=== PATIENT | male | born 1980 | race African-American/Black ===

== ENCOUNTER 2016-09-04 11:51 | Emergency (ER) | payer OTHER ==
[2016-09-04] MEDS ORDERED: ONDANSETRON 4MG/2ML VIAL (J2405) As Ordered ONE (13:31)
[2016-09-04] MEDS ORDERED: KETOROLAC 30 MG/ML VIAL (J1885) As Ordered ONE (13:31)
--- NOTE | 2016-09-04 13:35 | REP ---
Clinical: Left flank pain. Comparison: 04/23/2015. Findings: Lung bases clear. Liver, spleen, pancreas, gallbladder, bilateral adrenal glands and left kidney are normal for noncontrast evaluation. Right kidney demonstrates multiple nonobstructing calculi measuring up to 5 mm. No perinephric stranding or hydroureteronephrosis appreciated bilaterally. The enteric system is without obstruction or obvious acute inflammatory process. Normal appendix identified in the right lower quadrant. Pelvis demonstrates normal bladder and age appropriate prostate/seminal vesicles. Calcifications in the pelvis are stable compared to 2014 and compatible with phleboliths. No ascites. No free air. Musculoskeletal structures intact. Impression: Nonobstructing right intrarenal calculi up to 5 mm. No acute intra-abdominal or pelvic pathology appreciated. Signed by Kayode Garcia MD 09/04/2016 01:27 P
[2016-09-04 13:55] LABS: BASO % 0.3 % (0.0-1.0); EOS # 0.1 K/mm3 (0.0-0.50); EOS % 2.3 % (0.0-3.0); LARGE UNSTAINED CELL % 0.9 % (0.0-4.0); LYMPH # 1.7 K/mm3 (1.5-4.5); LYMPH % 35.4 % (24.0-44.0); MEAN CORPUSCULAR HEMOGLOBIN 33.4 pg (27.0-33.0); MEAN CORPUSCULAR HGB CONC 34.9 g/dl (32.0-36.5); MEAN CORPUSCULAR VOLUME 95.4 fl (80.0-96.0); MONO # 0.3 K/mm3 (0.0-0.8); MONO % 6.3 % (0.0-5.0); NEUTROPHILS # 2.5 K/mm3 (1.8-7.7); NEUTROPHILS % 54.8 % (36.0-66.0); PLATELET COUNT, AUTOMATED 218 k/mm3 (150-450); RED CELL DISTRIBUTION WIDTH 12.9 % (11.5-14.5); WHITE BLOOD COUNT 4.6 K/mm3 (4.0-10.0)
[2016-09-04 14:11] LABS: ALBUMIN 4.3 GM/DL (3.2-5.2); ALBUMIN/GLOBULIN RATIO 1.19 (1.00-1.93); ALKALINE PHOSPHATASE 93 U/L (45-117); ALT/SGPT 33 U/L (12-78); AMYLASE 102 U/L (25-115); ANION GAP 6 MEQ/L (8-16); AST/SGOT 18 U/L (15-37); BILIRUBIN,DIRECT < 0.1 MG/DL (0.0-0.2); BILIRUBIN,TOTAL 0.4 MG/DL (0.2-1.0); BLOOD UREA NITROGEN 9 MG/DL (7-18); CALCIUM LEVEL 9.4 MG/DL (8.5-10.1); CARBON DIOXIDE LEVEL 31 MEQ/L (21-32); CHLORIDE LEVEL 103 MEQ/L (98-107); CREATININE FOR GFR 0.84 MG/DL (0.70-1.30); GLOMERULAR FILTRATION RATE > 60.0 (>60); GLUCOSE, FASTING 90 MG/DL (70-105); POTASSIUM SERUM 4.5 MEQ/L (3.5-5.1); SODIUM LEVEL 140 MEQ/L (136-145); TOTAL PROTEIN 7.9 GM/DL (6.4-8.2)
[2016-09-04] MEDS ORDERED: PERCOCET 5MG/325MG TAB As Ordered ONE (14:40)
[2016-09-04] MEDS ORDERED: TAMSULOSIN 0.4 MG CAP As Ordered ONE (14:41)
--- NOTE | 2016-09-04 14:49 | EDDOCDS ---
Physician Documentation [facility] Name: Ori Mesa Age: 35 yrs Sex: Male : 1980 Arrival Date: 09/04/2016 Time: 11:51 Bed I7 / 29 Private MD: Otto Darnell L. Disposition: 09/04/16 14:36 Discharged to Home/Self Care. Impression: Calculus of kidney - Right 5mm Intrarenal Calculus. - Condition is Stable. - Discharge Instructions: Kidney Stones, Ubat-by-Yxge. - Prescriptions for Flomax 0.4 mg Oral Capsule, Sust. Release 24 hr - take 1 capsule by ORAL route once daily 1/2 hour following the same meal each day; 30 capsule. Percocet 5- 325 mg Oral Tablet - take 1 tablet by ORAL route every 6 hours As needed MDD: 4 tabs; 20 tablet. ZOFRAN ODT 4 mg - dissolve 1 tablet by ORAL route 4 times per day As needed do not chew, do not swallow whole; 10 tablet. ketorolac 10 mg Oral Tablet - take 1 tablet by ORAL route 3 times per day As needed MDD- 30mg. Up to 5 days total use.; 15 tablet. - Referral List Call for Appointment, Medication Reconciliation, Local Pharmacy Hours form. - Follow up: Otto Darnell; When: 1 - 2 days; Reason: Further diagnostic work-up, Recheck today's complaints, Continuance of care. [facility] ; When: Call to arrange an appointment; Reason: Further diagnostic work-up, Recheck today's complaints, Continuance of care. Follow up: Emergency Department; Reason: Worsening of conditions. - Problem is new. - Symptoms have improved. Historical: - Allergies: no known allergies; - Home Meds: 1. none - PMHx: Kidney stones; - PSHx: Lithotripsy (2016); - Social history: Smoking status: Patient uses tobacco products, current every day smoker. No barriers to communication noted, The patient speaks fluent Macanese, Speaks appropriately for age. - Family history: No immediate family members are acutely ill. - : The pt / caregiver states he / she is not on anticoagulants. Home medication list is obtained from the patient. - Exposure Risk Screening:: None identified. Vital Signs: 09/04 11:54 BP 139 / 71; Pulse 94; Resp 16; Temp 96.9(T); Pulse Ox 98% on R/A; Weight 77.11 kg / lr2 170 lbs (R); Height 6 ft. 2 in. (187.96 cm) (R); Pain 7/10; 14:39 BP 116 / 67; Pulse 70; Resp 18; Temp 97.3(O); Pulse Ox 100% on R/A; Pain 0/10; nb2 11:54 Body Mass Index 21.83 (77.11 kg, 187.96 cm) lr2 MDM: 11:58 UA Ordered. EDMS 12:54 [facility] Payment Agreement was scanned into [employer] and attached to record. ks16 13:10 NS 0.9% 1000 ml IV at bolus once ordered. ef1 13:10 Ondansetron 4 mg IVP once ordered. ef1 13:10 ketorolac 30 mg IVP once ordered. ef1 13:10 IV Saline Lock ordered. ef1 13:10 Undress patient appropriately for examination ordered. ef1 13:10 Urine Culture Ordered. EDMS 13:11 Amylase Ordered. EDMS 13:11 Basic Metabolic Profile Ordered. EDMS 13:12 CBC with Diff Ordered. EDMS 13:12 Lipase Ordered. EDMS 13:12 Liver Profile Ordered. EDMS 13:12 CT ABD & PELVIS: No Contrast Ordered. EDMS 13:12 NOTHING BY MOUTH+DIET ordered. EDMS 13:13 Financial registration complete. ks16 14:28 Basic Metabolic Profile Reviewed. ef1 14:28 CBC with Diff Reviewed. ef1 14:28 UA Reviewed. ef1 14:28 Amylase Reviewed. ef1 14:28 Lipase Reviewed. ef1 14:28 Liver Profile Reviewed. ef1 14:28 CT ABD & PELVIS: No Contrast Reviewed. ef1 14:31 Tamsulosin Extended Release 24 hour Capsule 0.4 mg PO once ordered. ef1 14:36 oxyCODONE-acetaminophen 5 mg-325 mg 1 tabs PO once ordered. ef1 Administered Medications: 13:48 Drug: NS 0.9% 1000 ml [sodium chloride 0.9 % intravenous solution] Route: IV; Rate: mb9 bolus; Site: right antecubital; 14:46 Follow up: IV Status: Completed infusion; IV Intake: 1000ml dls 13:49 Drug: Ondansetron 4 mg [ondansetron HCl 2 mg/mL intravenous solution (2 mL)] Route: mb9 IVP; Site: right antecubital; 13:49 Drug: ketorolac 30 mg [ketorolac 30 mg/mL (1 mL) injection solution (1 mL)] Route: IVP; mb9 Site: right antecubital; 14:45 Drug: Tamsulosin 0.4 mg [tamsulosin 0.4 mg capsule (1 caps)] Route: PO; dls 14:46 Follow up: Response: No Adverse Reaction dls 14:45 Drug: oxyCODONE-acetaminophen 1 tabs [oxycodone-acetaminophen 5 mg-325 mg tablet (1 dls tabs)] Route: PO; 14:45 Follow up: Response: Pt left department before re-evaluation is appropriate dls Signatures: Dispatcher [employer] EDKallie Mosher RN RN dls María Palma RN RN kr3 April Alberts, PA-C PA-C ef1 Remy Barboza RN RN mb9 Patricia Webb, Reg Reg ks16 The chart was reviewed and I authenticate all verbal orders and agree with the evaluation and treatment provided.Attachments: 12:54 [facility] Payment Agreement ks16 MTDD
--- NOTE | 2016-09-04 14:49 | EDDOCDS ---
Nurse's Notes [facility] Name: Ori Mesa Age: 35 yrs Sex: Male : 1980 Arrival Date: 09/04/2016 Time: 11:51 Bed I7 / 29 Private MD: Otto Darnell L. Diagnosis: Calculus of kidney-Right 5mm Intrarenal Calculus Presentation: 09/04 11:54 Presenting complaint: Patient states: left side kidney pain for 1 day. reports has had kr3 kidney stones previously. Adult Sepsis Screening: The patient does not have new or worsening altered mentation. Patient's respiratory rate is less than 22. Systolic blood pressure is greater than 100. Patient has a qSOFA score of 0- Negative Sepsis Screen. Suicide/Homicide risk assessment- the patient denies having any suicidal and/or homicidal ideations and does not present with any other emotional, behavioral or mental health complaints. Status: Patient is not a director social service or dependent. Transition of care: patient was not received from another setting of care. 11:54 Acuity: ELIZABETH Level 3 kr3 11:54 Method Of Arrival: Walkin/Carried/Asstd kr3 Triage Assessment: 11:56 General: Appears in no apparent distress, Behavior is cooperative. Pain: Location: left kr3 flank Pain currently is 7 out of 10 on a pain scale. Pain: Aggravated by increased activity, repositioning. Pt Declines HIV testing. Neurological: No deficits noted. Respiratory: Respiratory effort is even, unlabored. : Denies burning with urination, urinary frequency, urgency. Derm: Skin is normal. Historical: - Allergies: no known allergies; - Home Meds: 1. none - PMHx: Kidney stones; - PSHx: Lithotripsy (2016); - Social history: Smoking status: Patient uses tobacco products, current every day smoker. No barriers to communication noted, The patient speaks fluent Stateless, Speaks appropriately for age. - Family history: No immediate family members are acutely ill. - : The pt / caregiver states he / she is not on anticoagulants. Home medication list is obtained from the patient. - Exposure Risk Screening:: None identified. Screenin:50 Screening information is obtained from the patient. Fall risk: No risks identified. mb9 Assistance ADL's: requires no assistance with activities of daily living. Abuse/DV Screen: The patient / caregiver reports he/she is: not in a situation that causes fear, pain or injury. Nutritional screening: No deficits noted. Advance Directives: There is no active DNR order. home support is adequate. Assessment: 13:50 General: Appears in no apparent distress, Behavior is appropriate for age, cooperative. mb9 Pain: Location: left flank Pain currently is 6 out of 10 on a pain scale. Respiratory: Airway is patent Respiratory effort is even, unlabored. Vital Signs: 11:54 BP 139 / 71; Pulse 94; Resp 16; Temp 96.9(T); Pulse Ox 98% on R/A; Weight 77.11 kg (R); lr2 Height 6 ft. 2 in. (187.96 cm) (R); Pain 7/10; 14:39 BP 116 / 67; Pulse 70; Resp 18; Temp 97.3(O); Pulse Ox 100% on R/A; Pain 0/10; nb2 11:54 Body Mass Index 21.83 (77.11 kg, 187.96 cm) lr2 Vitals: 11:54 Log In Time: September 04, 2016 at 11:51. lr2 ED Course: 11:53 Patient visited by Nay Mayer. lr2 11:53 Otto Darnell is Private Physician. lr2 11:53 Patient moved to Waiting lr2 11:53 Patient moved to Pre RCE lr2 11:55 Triage Initiated kr3 12:03 UA Sent. srm 12:15 Patient name changed from Ori\S\\S\Mesa\S\ to Ori\S\ \S\Mesa. EDMS 12:54 [facility] Payment Agreement was scanned into [employer] and attached to record. ks16 12:57 Patient moved to Triage 3 srm 12:58 [facility] ef1 12:58 Candy Ovalles MD is Attending Physician. ef1 13:08 Patient visited by April Alberts PA-C. ef1 13:11 Patient moved to I ct3 13:38 Patient visited by April Alberts PA-C. ef1 13:48 Amylase Sent. mb9 13:48 Basic Metabolic Profile Sent. mb9 13:48 CBC with Diff Sent. mb9 13:48 Lipase Sent. mb9 13:48 Liver Profile Sent. mb9 13:50 The patient / caregiver is instructed regarding the plan of care and ED course. mb9 13:50 Inserted saline lock: 18 gauge in right antecubital area and blood collected. The mb9 patient tolerated the procedure well. 14:09 CT ABD & PELVIS: No Contrast Returned. EDMS 14:20 Patient visited by April Alberts PA-C. ef1 14:36 Patient visited by April Alberts PA-C. ef1 14:36 Otto Darnell is Referral Physician. ef1 14:36 [facility] is Referral Physician. ef1 14:39 Patient visited by Callie Cano. nb2 14:47 Discontinued IV lock intact, bleeding controlled, pressure dressing applied, No dls redness/swelling at site. No procedures done that require assistance. Administered Medications: 13:48 Drug: NS 0.9% 1000 ml [sodium chloride 0.9 % intravenous solution] Route: IV; Rate: mb9 bolus; Site: right antecubital; 14:46 Follow up: IV Status: Completed infusion; IV Intake: 1000ml dls 13:49 Drug: Ondansetron 4 mg [ondansetron HCl 2 mg/mL intravenous solution (2 mL)] Route: mb9 IVP; Site: right antecubital; 13:49 Drug: ketorolac 30 mg [ketorolac 30 mg/mL (1 mL) injection solution (1 mL)] Route: IVP; mb9 Site: right antecubital; 14:45 Drug: Tamsulosin 0.4 mg [tamsulosin 0.4 mg capsule (1 caps)] Route: PO; dls 14:46 Follow up: Response: No Adverse Reaction dls 14:45 Drug: oxyCODONE-acetaminophen 1 tabs [oxycodone-acetaminophen 5 mg-325 mg tablet (1 dls tabs)] Route: PO; 14:45 Follow up: Response: Pt left department before re-evaluation is appropriate dls Intake: 14:46 IV: 1000.00ml; Total: 1000.00ml. dls Order Results: Lab Order: UA; SPEC'M 09/04/16 12:01 Test: APPEARANCE, URINE; Value: CLEAR; Range: CLEAR; Status: F Test: COLOR, URINE; Value: YELLOW; Range: YELLOW; Status: F Test: PH,URINE; Value: 7.0; Range: 5.0-9.0; Units: UNITS; Status: F Test: SPECIFIC GRAVITY URINE AUTO; Value: 1.010; Range: 1.002-1.035; Status: F Test: PROTEIN, URINE AUTO; Value: NEGATIVE; Range: NEGATIVE; Units: mg/dL; Status: F Test: GLUCOSE, URINE (UA) AUTO; Value: NEGATIVE; Range: NEGATIVE; Units: mg/dL; Status: F Test: KETONE, URINE AUTO; Value: NEGATIVE; Range: NEGATIVE; Units: mg/dL; Status: F Test: UROBILINOGEN, URINE AUTO; Value: 0.2; Range: 0.0-2.0; Units: mg/dL; Status: F Test: BILIRUBIN, URINE AUTO; Value: NEGATIVE; Range: NEGATIVE; Status: F Test: NITRITE, URINE AUTO; Value: NEGATIVE; Range: NEGATIVE; Status: F Test: LEUKOCYTE ESTERASE, URINE AUTO; Value: NEGATIVE; Range: NEGATIVE; Status: F Test: BLOOD, URINE BLOOD; Value: NEGATIVE; Range: NEGATIVE; Status: F Test: WBC, URINE AUTO; Value: 0; Range: 0-3; Units: /HPF; Status: F Test: RBC, URINE AUTO; Value: 0; Range: 0-3; Units: /HPF; Status: F Test: BACTERIA, URINE AUTO; Value: NEGATIVE; Range: NEGATIVE; Status: F Test: SQUAMOUS EPITHELIAL CELL UR AU; Value: 0; Range: 0-6; Units: /HPF; Status: F Test: MUCUS, URINE; Value: SMALL; Range: NEGATIVE; Status: F Test: HYALINE CAST, URINE AUTO; Value: 0; Range: 0-1; Units: /LPF; Status: F Lab Order: Amylase; SPEC' 09/04/16 13:45 Test: AMYLASE; Value: 102; Range: 25-115; Units: U/L; Status: F Lab Order: Basic Metabolic Profile; SPEC' 09/04/16 13:45 Test: GLUCOSE, FASTING; Value: 90; Range: 70-105; Units: MG/DL; Status: F Test: BLOOD UREA NITROGEN; Value: 9; Range: 7-18; Units: MG/DL; Status: F Test: CREATININE FOR GFR; Value: 0.84; Range: 0.70-1.30; Units: MG/DL; Status: F Test: GLOMERULAR FILTRATION RATE; Value: > 60.0; Range: >60; Status: F Test: SODIUM LEVEL; Value: 140; Range: 136-145; Units: MEQ/L; Status: F Test: POTASSIUM SERUM; Value: 4.5; Range: 3.5-5.1; Units: MEQ/L; Status: F Test: CHLORIDE LEVEL; Value: 103; Range: 98-107; Units: MEQ/L; Status: F Test: CARBON DIOXIDE LEVEL; Value: 31; Range: 21-32; Units: MEQ/L; Status: F Test: ANION GAP; Value: 6; Range: 8-16; Abnormal: Below low normal; Units: MEQ/L; Status: F Test: CALCIUM LEVEL; Value: 9.4; Range: 8.5-10.1; Units: MG/DL; Status: F Test Note: ; Units are mL/min/1.73 m2 Chronic Kidney Disease Staging per NKF: Stage I & II GFR >=60 Normal to Mildly Decreased Stage III GFR 30-59 Moderately Decreased Stage IV GFR 15-29 Severely Decreased Stage V GFR <15 Very Little GFR Left ESRD GFR <15 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 Order: CBC with Diff; SPEC'M 09/04/16 13:45 Test: WHITE BLOOD COUNT; Value: 4.6; Range: 4.0-10.0; Units: K/mm3; Status: F Test: RED BLOOD COUNT; Value: 4.73; Range: 4.30-6.10; Units: M/mm3; Status: F Test: HEMOGLOBIN; Value: 15.8; Range: 14.0-18.0; Units: g/dl; Status: F Test: HEMATOCRIT; Value: 45.1; Range: 42.0-52.0; Units: %; Status: F Test: MEAN CORPUSCULAR VOLUME; Value: 95.4; Range: 80.0-96.0; Units: fl; Status: F Test: MEAN CORPUSCULAR HEMOGLOBIN; Value: 33.4; Range: 27.0-33.0; Abnormal: Above high normal; Units: pg; Status: F Test: MEAN CORPUSCULAR HGB CONC; Value: 34.9; Range: 32.0-36.5; Units: g/dl; Status: F Test: RED CELL DISTRIBUTION WIDTH; Value: 12.9; Range: 11.5-14.5; Units: %; Status: F Test: PLATELET COUNT, AUTOMATED; Value: 218; Range: 150-450; Units: k/mm3; Status: F Test: NEUTROPHILS %; Value: 54.8; Range: 36.0-66.0; Units: %; Status: F Test: LYMPH %; Value: 35.4; Range: 24.0-44.0; Units: %; Status: F Test: MONO %; Value: 6.3; Range: 0.0-5.0; Abnormal: Above high normal; Units: %; Status: F Test: EOS %; Value: 2.3; Range: 0.0-3.0; Units: %; Status: F Test: BASO %; Value: 0.3; Range: 0.0-1.0; Units: %; Status: F Test: LARGE UNSTAINED CELL %; Value: 0.9; Range: 0.0-4.0; Units: %; Status: F Test: NEUTROPHILS #; Value: 2.5; Range: 1.8-7.7; Units: K/mm3; Status: F Test: LYMPH #; Value: 1.7; Range: 1.5-4.5; Units: K/mm3; Status: F Test: MONO #; Value: 0.3; Range: 0.0-0.8; Units: K/mm3; Status: F Test: EOS #; Value: 0.1; Range: 0.0-0.50; Units: K/mm3; Status: F Test: BASO #; Value: 0.0; Range: 0.0-0.2; Units: K/mm3; Status: F Test: LARGE UNSTAINED CELL #; Value: 0.0; Range: 0.0-0.4; Units: K/mm3; Status: F Lab Order: Lipase; SPEC'M 09/04/16 13:45 Test: LIPASE; Value: 170; Range: 73-393; Units: U/L; Status: F Lab Order: Liver Profile; SPEC'M 09/04/16 13:45 Test: AST/SGOT; Value: 18; Range: 15-37; Units: U/L; Status: F Test: ALT/SGPT; Value: 33; Range: 12-78; Units: U/L; Status: F Test: ALKALINE PHOSPHATASE; Value: 93; Range: 45-117; Units: U/L; Status: F Test: BILIRUBIN,TOTAL; Value: 0.4; Range: 0.2-1.0; Units: MG/DL; Status: F Test: BILIRUBIN,DIRECT; Value: < 0.1; Range: 0.0-0.2; Units: MG/DL; Status: F Test: TOTAL PROTEIN; Value: 7.9; Range: 6.4-8.2; Units: GM/DL; Status: F Test: ALBUMIN; Value: 4.3; Range: 3.2-5.2; Units: GM/DL; Status: F Test: ALBUMIN/GLOBULIN RATIO; Value: 1.19; Range: 1.00-1.93; Status: F Radiology Order: CT ABD & PELVIS: No Contrast Test: CT ABD & PELVIS: No Contrast REASON FOR EXAMINATION: Renal colic; Clinical: Left flank pain.; ; Comparison: 04/23/2015.; ; Findings:; Lung bases clear.; Liver, spleen, pancreas, gallbladder, bilateral adrenal glands and left kidney; are normal for noncontrast evaluation. Right kidney demonstrates multiple; nonobstructing calculi measuring up to 5 mm. No perinephric stranding or; hydroureteronephrosis appreciated bilaterally. The enteric system is without; obstruction or obvious acute inflammatory process. Normal appendix identified in; the right lower quadrant. Pelvis demonstrates normal bladder and age appropriate; prostate/seminal vesicles. Calcifications in the pelvis are stable compared to; 2014 and compatible with phleboliths. No ascites. No free air. Musculoskeletal; structures intact.; ; Impression:; Nonobstructing right intrarenal calculi up to 5 mm.; No acute intra-abdominal or pelvic pathology appreciated.; ; ; Signed by; Kayode Garcia MD 09/04/2016 01:27 P; Outcome: 14:36 Discharge ordered by Provider. ef1 14:47 Discharge Assessment: Patient awake, alert and oriented x 3. No cognitive and/or dls functional deficits noted. Patient verbalized understanding of disposition instructions. patient administered narcotics - no. The following High Risk Discharge criteria are identified: None. Condition: stable. Discharge instructions given to patient, Instructed on discharge instructions, follow up and referral plans. medication usage, Demonstrated understanding of instructions, medications, Pt was receptive of discharge instructions/ teaching. Prescriptions given X 4. CT Study completed. Property :Personal belongings accompany Pt. 14:48 Patient left the ED. dls Signatures: Dispatcher [employer] EDMS Dorothy Garcia, RN RN Kallie Rajan RN RN dls María Palma RN RN kr3 April Alberts, PA-C PA-C ef1 Sarah Gonzales, CHANNEL EXECUTIVE CHANNEL EXECUTIVE ct3 Remy BarbozaRN RN mb9 Patricia Webb, Reg Reg ks16 Callie Cano nb2 Nay Mayer lr2 MTDD
--- NOTE | 2016-09-06 15:49 | EDDOCDS ---
Physician Documentation [facility] Name: Ori Mesa Age: 35 yrs Sex: Male : 1980 Arrival Date: 09/04/2016 Time: 11:51 Bed I7 / 29 Private MD: Otto Darnell L. Disposition: 09/04/16 14:36 Discharged to Home/Self Care. Impression: Calculus of kidney - Right 5mm Intrarenal Calculus. - Condition is Stable. - Discharge Instructions: Kidney Stones, Jrwk-di-Ayap. - Prescriptions for Flomax 0.4 mg Oral Capsule, Sust. Release 24 hr - take 1 capsule by ORAL route once daily 1/2 hour following the same meal each day; 30 capsule. Percocet 5- 325 mg Oral Tablet - take 1 tablet by ORAL route every 6 hours As needed MDD: 4 tabs; 20 tablet. ZOFRAN ODT 4 mg - dissolve 1 tablet by ORAL route 4 times per day As needed do not chew, do not swallow whole; 10 tablet. ketorolac 10 mg Oral Tablet - take 1 tablet by ORAL route 3 times per day As needed MDD- 30mg. Up to 5 days total use.; 15 tablet. - Referral List Call for Appointment, Medication Reconciliation, Local Pharmacy Hours form. - Follow up: Otto Darnell; When: 1 - 2 days; Reason: Further diagnostic work-up, Recheck today's complaints, Continuance of care. [facility]: [facility] ; When: Call to arrange an appointment; Reason: Further diagnostic work-up, Recheck today's complaints, Continuance of care. Follow up: Emergency Department; Reason: Worsening of conditions. - Problem is new. - Symptoms have improved. Historical: - Allergies: no known allergies; - Home Meds: 1. none - PMHx: Kidney stones; - PSHx: Lithotripsy (2016); - Social history: Smoking status: Patient uses tobacco products, current every day smoker. No barriers to communication noted, The patient speaks fluent British, Speaks appropriately for age. - Family history: No immediate family members are acutely ill. - : The pt / caregiver states he / she is not on anticoagulants. Home medication list is obtained from the patient. - Exposure Risk Screening:: None identified. Vital Signs: 09/04 11:54 BP 139 / 71; Pulse 94; Resp 16; Temp 96.9(T); Pulse Ox 98% on R/A; Weight 77.11 kg / lr2 170 lbs (R); Height 6 ft. 2 in. (187.96 cm) (R); Pain 7/10; 14:39 BP 116 / 67; Pulse 70; Resp 18; Temp 97.3(O); Pulse Ox 100% on R/A; Pain 0/10; nb2 11:54 Body Mass Index 21.83 (77.11 kg, 187.96 cm) lr2 MDM: 11:58 UA Ordered. EDMS 12:54 [facility] Payment Agreement was scanned into [employer] and attached to record. ks16 13:10 NS 0.9% 1000 ml IV at bolus once ordered. ef1 13:10 Ondansetron 4 mg IVP once ordered. ef1 13:10 ketorolac 30 mg IVP once ordered. ef1 13:10 IV Saline Lock ordered. ef1 13:10 Undress patient appropriately for examination ordered. ef1 13:10 Urine Culture Ordered. EDMS 13:11 Amylase Ordered. EDMS 13:11 Basic Metabolic Profile Ordered. EDMS 13:12 CBC with Diff Ordered. EDMS 13:12 Lipase Ordered. EDMS 13:12 Liver Profile Ordered. EDMS 13:12 CT ABD & PELVIS: No Contrast Ordered. EDMS 13:12 NOTHING BY MOUTH+DIET ordered. EDMS 13:13 Financial registration complete. ks16 14:28 Basic Metabolic Profile Reviewed. ef1 14:28 CBC with Diff Reviewed. ef1 14:28 UA Reviewed. ef1 14:28 Amylase Reviewed. ef1 14:28 Lipase Reviewed. ef1 14:28 Liver Profile Reviewed. ef1 14:28 CT ABD & PELVIS: No Contrast Reviewed. ef1 14:31 Tamsulosin Extended Release 24 hour Capsule 0.4 mg PO once ordered. ef1 14:36 oxyCODONE-acetaminophen 5 mg-325 mg 1 tabs PO once ordered. ef1 18:03 T-Sheet-- Draft Copy was scanned into [employer] and attached to record. klr 09/06 11:06 Radiology Report was scanned into [employer] and attached to record. gb Administered Medications: 09/04 13:48 Drug: NS 0.9% 1000 ml [sodium chloride 0.9 % intravenous solution] Route: IV; Rate: mb9 bolus; Site: right antecubital; 14:46 Follow up: IV Status: Completed infusion; IV Intake: 1000ml dls 13:49 Drug: Ondansetron 4 mg [ondansetron HCl 2 mg/mL intravenous solution (2 mL)] Route: mb9 IVP; Site: right antecubital; 13:49 Drug: ketorolac 30 mg [ketorolac 30 mg/mL (1 mL) injection solution (1 mL)] Route: IVP; mb9 Site: right antecubital; 14:45 Drug: Tamsulosin 0.4 mg [tamsulosin 0.4 mg capsule (1 caps)] Route: PO; dls 14:46 Follow up: Response: No Adverse Reaction dls 14:45 Drug: oxyCODONE-acetaminophen 1 tabs [oxycodone-acetaminophen 5 mg-325 mg tablet (1 dls tabs)] Route: PO; 14:45 Follow up: Response: Pt left department before re-evaluation is appropriate dls Signatures: Dispatcher [employer] EDKallie Mosher RN RN dls Ludivina Bradford, Reg Reg gb María Palma RN RN kr3 April Alberts, PA-C PA-C ef1 Remy BarbozaRN RN mb9 Patricia Webb, Reg Reg ks16 Jessica Finnegan The chart was reviewed and I authenticate all verbal orders and agree with the evaluation and treatment provided.Attachments: 12:54 [facility] Payment Agreement ks16 18:03 T-Sheet-- Draft Copy klr Chart Complete MTDD
--- NOTE | 2016-09-06 15:49 | EDDOCDS ---
Nurse's Notes [facility] Name: Ori Mesa Age: 35 yrs Sex: Male : 1980 Arrival Date: 09/04/2016 Time: 11:51 Bed I7 / 29 Private MD: Otto Darnell L. Diagnosis: Calculus of kidney-Right 5mm Intrarenal Calculus Presentation: 09/04 11:54 Presenting complaint: Patient states: left side kidney pain for 1 day. reports has had kr3 kidney stones previously. Adult Sepsis Screening: The patient does not have new or worsening altered mentation. Patient's respiratory rate is less than 22. Systolic blood pressure is greater than 100. Patient has a qSOFA score of 0- Negative Sepsis Screen. Suicide/Homicide risk assessment- the patient denies having any suicidal and/or homicidal ideations and does not present with any other emotional, behavioral or mental health complaints. Status: Patient is not a student services coordinator or dependent. Transition of care: patient was not received from another setting of care. 11:54 Acuity: ELIZABETH Level 3 kr3 11:54 Method Of Arrival: Walkin/Carried/Asstd kr3 Triage Assessment: 11:56 General: Appears in no apparent distress, Behavior is cooperative. Pain: Location: left kr3 flank Pain currently is 7 out of 10 on a pain scale. Pain: Aggravated by increased activity, repositioning. Pt Declines HIV testing. Neurological: No deficits noted. Respiratory: Respiratory effort is even, unlabored. : Denies burning with urination, urinary frequency, urgency. Derm: Skin is normal. Historical: - Allergies: no known allergies; - Home Meds: 1. none - PMHx: Kidney stones; - PSHx: Lithotripsy (2016); - Social history: Smoking status: Patient uses tobacco products, current every day smoker. No barriers to communication noted, The patient speaks fluent South Korean, Speaks appropriately for age. - Family history: No immediate family members are acutely ill. - : The pt / caregiver states he / she is not on anticoagulants. Home medication list is obtained from the patient. - Exposure Risk Screening:: None identified. Screenin:50 Screening information is obtained from the patient. Fall risk: No risks identified. mb9 Assistance ADL's: requires no assistance with activities of daily living. Abuse/DV Screen: The patient / caregiver reports he/she is: not in a situation that causes fear, pain or injury. Nutritional screening: No deficits noted. Advance Directives: There is no active DNR order. home support is adequate. Assessment: 13:50 General: Appears in no apparent distress, Behavior is appropriate for age, cooperative. mb9 Pain: Location: left flank Pain currently is 6 out of 10 on a pain scale. Respiratory: Airway is patent Respiratory effort is even, unlabored. Vital Signs: 11:54 BP 139 / 71; Pulse 94; Resp 16; Temp 96.9(T); Pulse Ox 98% on R/A; Weight 77.11 kg (R); lr2 Height 6 ft. 2 in. (187.96 cm) (R); Pain 7/10; 14:39 BP 116 / 67; Pulse 70; Resp 18; Temp 97.3(O); Pulse Ox 100% on R/A; Pain 0/10; nb2 11:54 Body Mass Index 21.83 (77.11 kg, 187.96 cm) lr2 Vitals: 11:54 Log In Time: September 04, 2016 at 11:51. lr2 ED Course: 11:53 Patient visited by Nay Mayer. lr2 11:53 Otto Darnell is Private Physician. lr2 11:53 Patient moved to Waiting lr2 11:53 Patient moved to Pre RCE lr2 11:55 Triage Initiated kr3 12:03 UA Sent. srm 12:15 Patient name changed from Ori\S\\S\Mesa\S\ to Ori\S\ \S\Mesa. EDMS 12:54 [facility] Payment Agreement was scanned into [employer] and attached to record. ks16 12:57 Patient moved to Triage 3 srm 12:58 [facility] ef1 12:58 Candy Ovalles MD is Attending Physician. ef1 13:08 Patient visited by April Alberts PA-C. ef1 13:11 Patient moved to I ct3 13:38 Patient visited by April Alberts PA-C. ef1 13:48 Amylase Sent. mb9 13:48 Basic Metabolic Profile Sent. mb9 13:48 CBC with Diff Sent. mb9 13:48 Lipase Sent. mb9 13:48 Liver Profile Sent. mb9 13:50 The patient / caregiver is instructed regarding the plan of care and ED course. mb9 13:50 Inserted saline lock: 18 gauge in right antecubital area and blood collected. The mb9 patient tolerated the procedure well. 14:09 CT ABD & PELVIS: No Contrast Returned. EDMS 14:20 Patient visited by April Alberts PA-C. ef1 14:36 Patient visited by April Alberts PA-C. ef1 14:36 Otto Darnell is Referral Physician. ef1 14:36 [facility] is Referral Physician. ef1 14:39 Patient visited by Callie Cano. nb2 14:47 Discontinued IV lock intact, bleeding controlled, pressure dressing applied, No dls redness/swelling at site. No procedures done that require assistance. 18:03 T-Sheet-- Draft Copy was scanned into [employer] and attached to record. klr 02 11:06 Radiology Report was scanned into [employer] and attached to record. gb Administered Medications: 09/04 13:48 Drug: NS 0.9% 1000 ml [sodium chloride 0.9 % intravenous solution] Route: IV; Rate: mb9 bolus; Site: right antecubital; 14:46 Follow up: IV Status: Completed infusion; IV Intake: 1000ml dls 13:49 Drug: Ondansetron 4 mg [ondansetron HCl 2 mg/mL intravenous solution (2 mL)] Route: mb9 IVP; Site: right antecubital; 13:49 Drug: ketorolac 30 mg [ketorolac 30 mg/mL (1 mL) injection solution (1 mL)] Route: IVP; mb9 Site: right antecubital; 14:45 Drug: Tamsulosin 0.4 mg [tamsulosin 0.4 mg capsule (1 caps)] Route: PO; dls 14:46 Follow up: Response: No Adverse Reaction dls 14:45 Drug: oxyCODONE-acetaminophen 1 tabs [oxycodone-acetaminophen 5 mg-325 mg tablet (1 dls tabs)] Route: PO; 14:45 Follow up: Response: Pt left department before re-evaluation is appropriate dls Intake: 14:46 IV: 1000.00ml; Total: 1000.00ml. dls Order Results: Lab Order: UA; SPEC'M 09/04/16 12:01 Test: APPEARANCE, URINE; Value: CLEAR; Range: CLEAR; Status: F Test: COLOR, URINE; Value: YELLOW; Range: YELLOW; Status: F Test: PH,URINE; Value: 7.0; Range: 5.0-9.0; Units: UNITS; Status: F Test: SPECIFIC GRAVITY URINE AUTO; Value: 1.010; Range: 1.002-1.035; Status: F Test: PROTEIN, URINE AUTO; Value: NEGATIVE; Range: NEGATIVE; Units: mg/dL; Status: F Test: GLUCOSE, URINE (UA) AUTO; Value: NEGATIVE; Range: NEGATIVE; Units: mg/dL; Status: F Test: KETONE, URINE AUTO; Value: NEGATIVE; Range: NEGATIVE; Units: mg/dL; Status: F Test: UROBILINOGEN, URINE AUTO; Value: 0.2; Range: 0.0-2.0; Units: mg/dL; Status: F Test: BILIRUBIN, URINE AUTO; Value: NEGATIVE; Range: NEGATIVE; Status: F Test: NITRITE, URINE AUTO; Value: NEGATIVE; Range: NEGATIVE; Status: F Test: LEUKOCYTE ESTERASE, URINE AUTO; Value: NEGATIVE; Range: NEGATIVE; Status: F Test: BLOOD, URINE BLOOD; Value: NEGATIVE; Range: NEGATIVE; Status: F Test: WBC, URINE AUTO; Value: 0; Range: 0-3; Units: /HPF; Status: F Test: RBC, URINE AUTO; Value: 0; Range: 0-3; Units: /HPF; Status: F Test: BACTERIA, URINE AUTO; Value: NEGATIVE; Range: NEGATIVE; Status: F Test: SQUAMOUS EPITHELIAL CELL UR AU; Value: 0; Range: 0-6; Units: /HPF; Status: F Test: MUCUS, URINE; Value: SMALL; Range: NEGATIVE; Status: F Test: HYALINE CAST, URINE AUTO; Value: 0; Range: 0-1; Units: /LPF; Status: F Lab Order: Urine Culture; SPEC'M 09/04/16 12:00 Test: URINE CULTURE; Value: <EXTERNAL COMMENT eCWMed> FULL REPORT IN LAB NOTES (eCW and Medent).; Status: F Test: URINE CULTURE; Value: URINE CULTURE RESULT NO GROWTH; Status: F Lab Order: Amylase; SPEC'M 09/04/16 13:45 Test: AMYLASE; Value: 102; Range: 25-115; Units: U/L; Status: F Lab Order: Basic Metabolic Profile; SPEC'M 09/04/16 13:45 Test: GLUCOSE, FASTING; Value: 90; Range: 70-105; Units: MG/DL; Status: F Test: BLOOD UREA NITROGEN; Value: 9; Range: 7-18; Units: MG/DL; Status: F Test: CREATININE FOR GFR; Value: 0.84; Range: 0.70-1.30; Units: MG/DL; Status: F Test: GLOMERULAR FILTRATION RATE; Value: > 60.0; Range: >60; Status: F Test: SODIUM LEVEL; Value: 140; Range: 136-145; Units: MEQ/L; Status: F Test: POTASSIUM SERUM; Value: 4.5; Range: 3.5-5.1; Units: MEQ/L; Status: F Test: CHLORIDE LEVEL; Value: 103; Range: 98-107; Units: MEQ/L; Status: F Test: CARBON DIOXIDE LEVEL; Value: 31; Range: 21-32; Units: MEQ/L; Status: F Test: ANION GAP; Value: 6; Range: 8-16; Abnormal: Below low normal; Units: MEQ/L; Status: F Test: CALCIUM LEVEL; Value: 9.4; Range: 8.5-10.1; Units: MG/DL; Status: F Test Note: ; Units are mL/min/1.73 m2 Chronic Kidney Disease Staging per NKF: Stage I & II GFR >=60 Normal to Mildly Decreased Stage III GFR 30-59 Moderately Decreased Stage IV GFR 15-29 Severely Decreased Stage V GFR <15 Very Little GFR Left ESRD GFR <15 on ROUTE DELIVERY SUPERVISOR Lab Order: CBC with Diff; SPEC'M 09/04/16 13:45 Test: WHITE BLOOD COUNT; Value: 4.6; Range: 4.0-10.0; Units: K/mm3; Status: F Test: RED BLOOD COUNT; Value: 4.73; Range: 4.30-6.10; Units: M/mm3; Status: F Test: HEMOGLOBIN; Value: 15.8; Range: 14.0-18.0; Units: g/dl; Status: F Test: HEMATOCRIT; Value: 45.1; Range: 42.0-52.0; Units: %; Status: F Test: MEAN CORPUSCULAR VOLUME; Value: 95.4; Range: 80.0-96.0; Units: fl; Status: F Test: MEAN CORPUSCULAR HEMOGLOBIN; Value: 33.4; Range: 27.0-33.0; Abnormal: Above high normal; Units: pg; Status: F Test: MEAN CORPUSCULAR HGB CONC; Value: 34.9; Range: 32.0-36.5; Units: g/dl; Status: F Test: RED CELL DISTRIBUTION WIDTH; Value: 12.9; Range: 11.5-14.5; Units: %; Status: F Test: PLATELET COUNT, AUTOMATED; Value: 218; Range: 150-450; Units: k/mm3; Status: F Test: NEUTROPHILS %; Value: 54.8; Range: 36.0-66.0; Units: %; Status: F Test: LYMPH %; Value: 35.4; Range: 24.0-44.0; Units: %; Status: F Test: MONO %; Value: 6.3; Range: 0.0-5.0; Abnormal: Above high normal; Units: %; Status: F Test: EOS %; Value: 2.3; Range: 0.0-3.0; Units: %; Status: F Test: BASO %; Value: 0.3; Range: 0.0-1.0; Units: %; Status: F Test: LARGE UNSTAINED CELL %; Value: 0.9; Range: 0.0-4.0; Units: %; Status: F Test: NEUTROPHILS #; Value: 2.5; Range: 1.8-7.7; Units: K/mm3; Status: F Test: LYMPH #; Value: 1.7; Range: 1.5-4.5; Units: K/mm3; Status: F Test: MONO #; Value: 0.3; Range: 0.0-0.8; Units: K/mm3; Status: F Test: EOS #; Value: 0.1; Range: 0.0-0.50; Units: K/mm3; Status: F Test: BASO #; Value: 0.0; Range: 0.0-0.2; Units: K/mm3; Status: F Test: LARGE UNSTAINED CELL #; Value: 0.0; Range: 0.0-0.4; Units: K/mm3; Status: F Lab Order: Lipase; SPEC'M 09/04/16 13:45 Test: LIPASE; Value: 170; Range: 73-393; Units: U/L; Status: F Lab Order: Liver Profile; SPEC'M 09/04/16 13:45 Test: AST/SGOT; Value: 18; Range: 15-37; Units: U/L; Status: F Test: ALT/SGPT; Value: 33; Range: 12-78; Units: U/L; Status: F Test: ALKALINE PHOSPHATASE; Value: 93; Range: 45-117; Units: U/L; Status: F Test: BILIRUBIN,TOTAL; Value: 0.4; Range: 0.2-1.0; Units: MG/DL; Status: F Test: BILIRUBIN,DIRECT; Value: < 0.1; Range: 0.0-0.2; Units: MG/DL; Status: F Test: TOTAL PROTEIN; Value: 7.9; Range: 6.4-8.2; Units: GM/DL; Status: F Test: ALBUMIN; Value: 4.3; Range: 3.2-5.2; Units: GM/DL; Status: F Test: ALBUMIN/GLOBULIN RATIO; Value: 1.19; Range: 1.00-1.93; Status: F Radiology Order: CT ABD & PELVIS: No Contrast Test: CT ABD & PELVIS: No Contrast REASON FOR EXAMINATION: Renal colic; Clinical: Left flank pain.; ; Comparison: 04/23/2015.; ; Findings:; Lung bases clear.; Liver, spleen, pancreas, gallbladder, bilateral adrenal glands and left kidney; are normal for noncontrast evaluation. Right kidney demonstrates multiple; nonobstructing calculi measuring up to 5 mm. No perinephric stranding or; hydroureteronephrosis appreciated bilaterally. The enteric system is without; obstruction or obvious acute inflammatory process. Normal appendix identified in; the right lower quadrant. Pelvis demonstrates normal bladder and age appropriate; prostate/seminal vesicles. Calcifications in the pelvis are stable compared to; 2014 and compatible with phleboliths. No ascites. No free air. Musculoskeletal; structures intact.; ; Impression:; Nonobstructing right intrarenal calculi up to 5 mm.; No acute intra-abdominal or pelvic pathology appreciated.; ; ; Signed by; Kayode Garcia MD 09/04/2016 01:27 P; Outcome: 14:36 Discharge ordered by Provider. ef1 14:47 Discharge Assessment: Patient awake, alert and oriented x 3. No cognitive and/or dls functional deficits noted. Patient verbalized understanding of disposition instructions. patient administered narcotics - no. The following High Risk Discharge criteria are identified: None. Condition: stable. Discharge instructions given to patient, Instructed on discharge instructions, follow up and referral plans. medication usage, Demonstrated understanding of instructions, medications, Pt was receptive of discharge instructions/ teaching. Prescriptions given X 4. CT Study completed. Property :Personal belongings accompany Pt. 14:48 Patient left the ED. dls Signatures: Dispatcher [employer] EDMS Dorothy Garcia, RN RN Kallie Rajan RN RN Ludivina Sotomayor, Reg Reg gb María Palma RN RN kr3 April Alberts, PA-C PA-C ef1 Sarah Gonzales, LEAD MANUFACTURING ENGINEERING TECH LEAD MANUFACTURING ENGINEERING TECH ct3 Remy BarbozaRN RN mb9 Patricia Webb, Reg Reg ks16 Kain, Callie Pearson2 Nay Mayer2 Chart Complete MTDD
--- NOTE | 2016-09-06 15:49 | EDDOCDS ---
Physician Documentation [facility] Name: Ori Mesa Age: 35 yrs Sex: Male : 1980 Arrival Date: 09/04/2016 Time: 11:51 Bed I7 / 29 Private MD: Otto Darnell L. Disposition: 09/04/16 14:36 Discharged to Home/Self Care. Impression: Calculus of kidney - Right 5mm Intrarenal Calculus. - Condition is Stable. - Discharge Instructions: Kidney Stones, [id number]. - Prescriptions for Flomax 0.4 mg Oral Capsule, Sust. Release 24 hr - take 1 capsule by ORAL route once daily 1/2 hour following the same meal each day; 30 capsule. Percocet 5- 325 mg Oral Tablet - take 1 tablet by ORAL route every 6 hours As needed MDD: 4 tabs; 20 tablet. ZOFRAN ODT 4 mg - dissolve 1 tablet by ORAL route 4 times per day As needed do not chew, do not swallow whole; 10 tablet. ketorolac 10 mg Oral Tablet - take 1 tablet by ORAL route 3 times per day As needed MDD- 30mg. Up to 5 days total use.; 15 tablet. - Referral List Call for Appointment, Medication Reconciliation, Local Pharmacy Hours form. - Follow up: Otto Darnell; When: 1 - 2 days; Reason: Further diagnostic work-up, Recheck today's complaints, Continuance of care. [facility] ; When: Call to arrange an appointment; Reason: Further diagnostic work-up, Recheck today's complaints, Continuance of care. Follow up: Emergency Department; Reason: Worsening of conditions. - Problem is new. - Symptoms have improved. Historical: - Allergies: no known allergies; - Home Meds: 1. none - PMHx: Kidney stones; - PSHx: Lithotripsy (2016); - Social history: Smoking status: Patient uses tobacco products, current every day smoker. No barriers to communication noted, The patient speaks fluent [place], Speaks appropriately for age. - Family history: No immediate family members are acutely ill. - : The pt / caregiver states he / she is not on anticoagulants. Home medication list is obtained from the patient. - Exposure Risk Screening:: None identified. Vital Signs: 09/04 11:54 BP 139 / 71; Pulse 94; Resp 16; Temp 96.9(T); Pulse Ox 98% on R/A; Weight 77.11 kg / lr2 170 lbs (R); Height 6 ft. 2 in. (187.96 cm) (R); Pain 7/10; 14:39 BP 116 / 67; Pulse 70; Resp 18; Temp 97.3(O); Pulse Ox 100% on R/A; Pain 0/10; nb2 11:54 Body Mass Index 21.83 (77.11 kg, 187.96 cm) lr2 MDM: 11:58 UA Ordered. EDMS 12:54 [facility] Payment Agreement was scanned into [employer] and attached to record. ks16 13:10 NS 0.9% 1000 ml IV at bolus once ordered. ef1 13:10 Ondansetron 4 mg IVP once ordered. ef1 13:10 ketorolac 30 mg IVP once ordered. ef1 13:10 IV Saline Lock ordered. ef1 13:10 Undress patient appropriately for examination ordered. ef1 13:10 Urine Culture Ordered. EDMS 13:11 Amylase Ordered. EDMS 13:11 Basic Metabolic Profile Ordered. EDMS 13:12 CBC with Diff Ordered. EDMS 13:12 Lipase Ordered. EDMS 13:12 Liver Profile Ordered. EDMS 13:12 CT ABD & PELVIS: No Contrast Ordered. EDMS 13:12 NOTHING BY MOUTH+DIET ordered. EDMS 13:13 Financial registration complete. ks16 14:28 Basic Metabolic Profile Reviewed. ef1 14:28 CBC with Diff Reviewed. ef1 14:28 UA Reviewed. ef1 14:28 Amylase Reviewed. ef1 14:28 Lipase Reviewed. ef1 14:28 Liver Profile Reviewed. ef1 14:28 CT ABD & PELVIS: No Contrast Reviewed. ef1 14:31 Tamsulosin Extended Release 24 hour Capsule 0.4 mg PO once ordered. ef1 14:36 oxyCODONE-acetaminophen 5 mg-325 mg 1 tabs PO once ordered. ef1 18:03 T-Sheet-- Draft Copy was scanned into [employer] and attached to record. klr 09/06 11:06 Radiology Report was scanned into [employer] and attached to record. gb Administered Medications: 09/04 13:48 Drug: NS 0.9% 1000 ml [sodium chloride 0.9 % intravenous solution] Route: IV; Rate: mb9 bolus; Site: right antecubital; 14:46 Follow up: IV Status: Completed infusion; IV Intake: 1000ml dls 13:49 Drug: Ondansetron 4 mg [ondansetron HCl 2 mg/mL intravenous solution (2 mL)] Route: mb9 IVP; Site: right antecubital; 13:49 Drug: ketorolac 30 mg [ketorolac 30 mg/mL (1 mL) injection solution (1 mL)] Route: IVP; mb9 Site: right antecubital; 14:45 Drug: Tamsulosin 0.4 mg [tamsulosin 0.4 mg capsule (1 caps)] Route: PO; dls 14:46 Follow up: Response: No Adverse Reaction dls 14:45 Drug: oxyCODONE-acetaminophen 1 tabs [oxycodone-acetaminophen 5 mg-325 mg tablet (1 dls tabs)] Route: PO; 14:45 Follow up: Response: Pt left department before re-evaluation is appropriate dls Signatures: Dispatcher [employer] EDKallie Mosher RN RN dls Ludivina Bradford, Reg Reg gb María Palma RN RN kr3 April Alberts, PA-C PA-C ef1 Remy BarbozaRN RN mb9 Patricia Webb, Reg Reg ks16 Jessica Finnegan The chart was reviewed and I authenticate all verbal orders and agree with the evaluation and treatment provided.Attachments: 12:54 [facility] Payment Agreement ks16 18:03 T-Sheet-- Draft Copy klr Chart Complete MTDD
== END 2016-09-04 14:48 | disposition home or self-care (01) ==
LOC: M ED 11:51
DX: N20.1 Calculus of ureter (principal); Z87.442 Personal history of urinary calculi; F17.210 Nicotine dependence, cigarettes, uncomplicated
CPT/HCPCS: 36415; 74176; 80048; 80076; 81001; 82150; 83690; 85025; 87086; 96361; 96374; 96375; 99284; J1885; J2405

== ENCOUNTER → 2016-09-08 | Outpatient (REF) | payer OTHER | LOC: M SMT 17:04 | PROVIDERS: ATTEND Urology | DX: R10.9 Unspecified abdominal pain (principal) ==

== ENCOUNTER → 2024-07-16 | Outpatient (REF) | payer BC, OTHER ==
[2024-07-16 15:14] LABS: BASO % 0.6 % (0.0-1.0); EOS # 0.1 10^3/uL (0.0-0.5); HEMATOCRIT 42.6 % (42.0-52.0); LYMPH # 1.7 10^3/uL (1.5-5.0); LYMPH % 34.2 % (24.0-44.0); MEAN CORPUSCULAR HEMOGLOBIN 33.1 pg (27.0-33.0); MEAN CORPUSCULAR HGB CONC 35.2 g/dl (32.0-36.5); MONO # 0.5 10^3/uL (0.0-0.8); MONO % 9.2 % (2.0-8.0); NEUTROPHILS # 2.8 10^3/uL (1.5-8.5); NEUTROPHILS % 54.8 % (36.0-66.0); PLATELET COUNT, AUTOMATED 211 10^3/uL (150-450); RED BLOOD COUNT 4.53 10^6/uL (4.30-6.10); WHITE BLOOD COUNT 5.1 10^3/uL (4.0-10.0)
[2024-07-16 15:41] LABS: HEMOGLOBIN A1c 5.3 % (4.0-6.0)
[2024-07-16 15:48] LABS: ALBUMIN 4.2 G/DL (3.2-5.2); ALKALINE PHOSPHATASE 87 U/L (40-129); ALT/SGPT 25 U/L (7.0-40); AST/SGOT 24 U/L (<34); BILIRUBIN,TOTAL 0.4 MG/DL (0.3-1.2); BLOOD UREA NITROGEN 20 MG/DL (9-23); CALCIUM LEVEL 10.1 MG/DL (8.5-10.1); CARBON DIOXIDE LEVEL 28 MMOL/L (20-31); CHLORIDE LEVEL 104 MMOL/L (98-107); CHOLESTEROL LEVEL 187 MG/DL (<200); CREATININE FOR GFR 0.93 MG/DL (0.70-1.30); GLOMERULAR FILTRATION RATE > 60.0 (>60); GLUCOSE, FASTING 93 MG/DL (60-100); HDL CHOLESTEROL 81.2 MG/DL (>40); LDL CHOLESTEROL 96.8 MG/DL (<100); NON-HDL-C 105.8 MG/DL; SODIUM LEVEL 139 MMOL/L (136-145); TOTAL PROTEIN 7.3 G/DL (5.7-8.2); TRIGLYCERIDES LEVEL 45 MG/DL (<150)
[2024-07-16 15:50] LABS: THYROID STIMULATING HORMONE 0.815 uIU/ML (0.55-4.78)
== END ==
LOC: M LAB REF 14:55
PROVIDERS: ATTEND Nurse Practitioner Family
DX: R53.83 Other fatigue (principal); Z11.9 Encounter for screening for infectious and parasitic diseases, unspecified; Z13.6 Encounter for screening for cardiovascular disorders; Z13.1 Encounter for screening for diabetes mellitus

== ENCOUNTER 2025-06-03 14:23 | Emergency (ER) | payer BC ==
[~2025-06-03] VITALS: Ht 188 cm; Wt 73.6 kg
[2025-06-03] MEDS ORDERED: AMOX875T2 (14:49)
[2025-06-03] MEDS ORDERED: LIDO15SO8 (14:49)
[2025-06-03] MEDS ORDERED: IBUP1TAB7 PO (14:49)
[2025-06-03] MEDS: ACETAMINOPHEN 325 MG TAB PO ONE (16:55)
[2025-06-03] MEDS: KETOROLAC 60 MG/2 ML VIAL IM ONE (18:11)
[2025-06-03] MEDS ORDERED: HYDR-3713 PO (18:22)
[2025-06-03 18:36] VITALS: BP 125/79; TEMP 97.6; O2SAT 99
== END 2025-06-03 18:39 | disposition home or self-care (01) ==
LOC: M ED 14:23
DX: K02.9 Dental caries, unspecified (principal); Z79.1 Long term (current) use of non-steroidal anti-inflammatories (NSAID); Z79.2 Long term (current) use of antibiotics; Z79.899 Other long term (current) drug therapy
CPT/HCPCS: 96372; 99283; J1885